=== PATIENT | male | born 1990 | race Caucasian/White ===

== ENCOUNTER 2020-05-20 14:52 | Emergency (ER) | payer OTHER ==
[2020-05-20 17:54] VITALS: BP 122/88
== END 2020-05-20 17:55 | disposition home or self-care (01) ==
LOC: ED 14:52
DX: S99.911A Unspecified injury of right ankle, initial encounter (principal); F17.210 Nicotine dependence, cigarettes, uncomplicated; W01.198A Fall on same level from slipping, tripping and stumbling with subsequent striking against other object, initial encounter; Y93.02 Activity, running; Y92.410 Unspecified street and highway as the place of occurrence of the external cause
CPT/HCPCS: L4396